=== PATIENT | male | born 1985 | race Caucasian/White ===

== ENCOUNTER 2022-11-15 20:30 | Emergency (ER) | payer BC ==
[2022-11-15] MEDS ORDERED: Lidocaine 1% 5 ML VIAL INJECT ONE (21:02)
[2022-11-15] MEDS ORDERED: Bacitracin Oint 1 GM U/D Packet TOP ONE (22:07)
[2022-11-15] MEDS ORDERED: Morphine 15 MG Tab PO ONE (22:07)
== END 2022-11-15 22:36 | disposition home or self-care (01) ==
LOC: MW.ED 20:30
DX: S61.011A Laceration without foreign body of right thumb without damage to nail, initial encounter (principal); I10 Essential (primary) hypertension; W45.8XXA Other foreign body or object entering through skin, initial encounter
CPT/HCPCS: 12002; 99282; A9270; 99283; J3490